=== PATIENT | female | born 1945 | race Caucasian/White ===

== ENCOUNTER 2021-12-10 12:43 | Observation (INO) ==
[2021-12-10] MEDS ORDERED: Naloxone 0.4 MG/ML INJ IVP PRN (14:41)
[2021-12-10] MEDS: *HR* Heparin 5,000 UNIT/ML VIAL SQ SCH (20:44)
[2021-12-10] MEDS ORDERED: hydrOXYzine pamoate 25 MG CAPSULE PO SCH (21:00)
[2021-12-11 04:11] LABS: Basophils # 0.1 K/mcL (0.0-0.2); Eosinophils # 0.5 K/mcL (0.0-0.6); Hematocrit 34.8 % (35.3-44.9); Hemoglobin 11.8 g/dL (11.5-15.4); Immature Granulocytes % 0.3 % (0-4); Lymphocytes # 3.3 K/mcL (0.6-4.6); Mean Corpuscular HGB Conc 33.9 g/dL (31.6-35.5); Mean Corpuscular Hemoglobin 31.4 pg (28.0-33.3); Mean Corpuscular Volume 92.6 fL (83.0-100.0); Mean Platelet Volume 10.8 fL (9.4-12.4); Monocytes # 0.9 K/mcL (0.0-1.3); Monocytes % 10.7 %; Platelet Count 294 K/mcL (140-400); Red Blood Count 3.76 M/mcL (3.82-4.97); Red Cell Distribution Width 12.3 % (11.5-14.5); White Blood Count 8.8 K/mcL (4.3-11.1)
[2021-12-11 04:30] LABS: Potassium 3.8 mEq/L (3.5-5.1)
[2021-12-11] MEDS ORDERED: Regadenoson 0.4 MG/5 ML SYRINGE IVP ONE (06:33)
[2021-12-11] MEDS ORDERED: Aspirin Enteric Coated 81 MG Tablet PO SCH (09:00)
[2021-12-11] MEDS ORDERED: amLODIPine 5 MG TABLET PO SCH (09:00)
[2021-12-11] MEDS ORDERED: allopurinoL 100 MG TABLET PO SCH (09:00)
[2021-12-11] MEDS ORDERED: NON-FORMULARY MEDICATION 1 EACH EACH (Potassium Gluconate [Potassium] 99 MG Tablet) PO SCH (09:00)
[2021-12-11] MEDS ORDERED: Perflutren Lipid Microsphere 1.3 ML in 0.9 % Sodium Chloride 8.7 ML IVP PRN (09:55)
[2021-12-11] MEDS: *HR* Heparin 5,000 UNIT/ML VIAL SQ SCH ×2 (10:05→11:49)
[2021-12-11 10:32] VITALS: BP 172/89; PULSE 88; TEMP 97.6; O2SAT 98
== END 2021-12-11 15:40 | disposition home or self-care (01) ==
LOC: 3BNU → SUATTDRO 14:05
PROVIDERS: ADMIT Internal Medicine; ATTEND Registered Nurse